=== PATIENT | male | born 1960 | race Caucasian/White ===

== ENCOUNTER → 2024-05-06 17:08 | Outpatient (REF) | payer BC, SELFPAY ==
[2024-05-09 08:14] LABS: PSA Total 3.3 ng/mL (0.0-4.0)
== END ==
LOC: REG 17:08
PROVIDERS: ATTENDING PHYSICIAN Urology; FAMILY PHYSICIAN Family Medicine
DX: R97.20 Elevated prostate specific antigen [PSA] (principal)
CPT/HCPCS: 36415; 84153; 84154